=== PATIENT | male | born 1970 | race Caucasian/White ===

== ENCOUNTER → 2022-01-28 17:26 | Outpatient (CLI) | payer OTHER, SELFPAY ==
--- NOTE | 2022-01-28 17:32 | DI.RAD.S_ITS ---
PROCEDURE: XR LUMBAR SPINE 2-3V INDICATIONS: Lower back pain TECHNIQUE: 3 views of the lumbar spine were acquired. COMPARISON: None. FINDINGS: Bones: 5 [id number] vertebrae are present. There is normal bony alignment. No acute vertebral body compression fractures. No suspicious bony lesions. Moderate multilevel lumbar spondylosis with degenerative endplate changes, disc space loss, and endplate osteophyte formation. Moderate mid and lower lumbar facet arthropathy. Degenerative changes of the bilateral hips. Soft tissues: Overlying bowel gas pattern is normal. No suspicious soft tissue calcifications. IMPRESSION: Lumbar spine without acute osseous abnormalities. Moderate multilevel lumbar spondylosis. Degenerative changes of the bilateral hips. Dictated by: [place] Miranda M.D. on 01/29/2022 at 10:22 Approved by: Montana Miranda M.D. on 01/29/2022 at 10:24
== END ==
PROVIDERS: Referring Provider Chiropractor; Visit Provider Chiropractor
DX: M54.50 Low back pain, unspecified (principal); M47.816 Spondylosis without myelopathy or radiculopathy, lumbar region
CPT/HCPCS: 72100